=== PATIENT | male | born 1940 | race Caucasian/White ===

== ENCOUNTER → 2018-10-27 | Outpatient (CLI) | payer MEDICARE ==
[2018-10-27 10:08] LABS: CALCIUM 9.6 MG/DL (8.5-10.1); CREATININE SERUM 1.4 MG/DL (0.60-1.30); POTASSIUM 4.9 MMOL/L (3.6-5.0)
[2018-10-27 10:09] LABS: ALBUMIN 4.4 GM/DL (3.2-4.5); BILIRUBIN,TOTAL 0.3 MG/DL (0.1-1.0); HEMATOCRIT 41 % (40-54); HEMOGLOBIN 13.2 G/DL (13.3-17.7); MEAN CORPUSCULAR HEMOGLOBIN 29 PG (25-34); MEAN CORPUSCULAR VOLUME 90 FL (80-99); TOTAL PROTEIN 7.1 GM/DL (6.4-8.2)
[2018-10-27 10:10] LABS: BASOPHILS # (AUTO) 0.1 10^3/uL (0.0-0.1); BASOPHILS % (AUTO) 0 % (0-10); EOSINOPHILS # (AUTO) 0.2 10^3/uL (0.0-0.3); EOSINOPHILS % (AUTO) 1 % (0-10); LYMPHOCYTES # (AUTO) 18.8 X 10^3 (1.0-4.0); LYMPHOCYTES % (AUTO) 75 % (12-44); MEAN CORPUSCULAR HGB CONC 33 G/DL (32-36); MEAN PLATELET VOLUME 9.4 FL (7.4-10.4); MONOCYTES # (AUTO) 0.8 X 10^3 (0.0-1.0); MONOCYTES % (AUTO) 3 % (0-12); NEUTROPHILS # (AUTO) 5.1 X 10^3 (1.8-7.8); NEUTROPHILS % (AUTO) 21 % (42-75); PLATELET COUNT 254 10^3/uL (130-400)
== END ==
LOC: LAB FS 08:45
PROVIDERS: ATTEND Internal Medicine Hematology & Oncology
DX: Z01.89 Encounter for other specified special examinations (principal)
CPT/HCPCS: 36415; 80053; 82232; 82784; 83615; 85025

== ENCOUNTER → 2020-04-28 | Outpatient (CLI) | payer MEDICARE ==
[2020-04-28 11:49] LABS: POTASSIUM 4.9 MMOL/L (3.6-5.0)
[2020-04-28 11:50] LABS: ALBUMIN 4.3 GM/DL (3.2-4.5); BILIRUBIN,TOTAL 0.3 MG/DL (0.1-1.0); CALCIUM 9.4 MG/DL (8.5-10.1); CREATININE SERUM 1.31 MG/DL (0.60-1.30); TOTAL PROTEIN 6.8 GM/DL (6.4-8.2)
== END ==
LOC: LAB FS 10:40
PROVIDERS: ATTEND Internal Medicine Hematology & Oncology
DX: Z00.00 Encounter for general adult medical examination without abnormal findings (principal)
CPT/HCPCS: 36415; 80053; 82232; 82784; 83615

== ENCOUNTER → 2020-10-23 | Outpatient (CLI) | payer MEDICARE ==
[2020-10-23 13:05] LABS: HEMATOCRIT 38 % (40-54); HEMOGLOBIN 12.2 g/dL (13.3-17.7); MEAN CORPUSCULAR HEMOGLOBIN 30 pg (25-34); WHITE BLOOD COUNT 29.3 10^3/uL (4.3-11.0)
[2020-10-23 13:06] LABS: BASOPHILS % (AUTO) 0 % (0-10); EOSINOPHILS % (AUTO) 1 % (0-10); LYMPHOCYTES % (AUTO) 73 % (12-44); MEAN CORPUSCULAR HGB CONC 32 g/dL (32-36); MEAN CORPUSCULAR VOLUME 92 fL (80-99); MEAN PLATELET VOLUME 9.1 fL (9.0-12.2); MONOCYTES % (AUTO) 4 % (0-12); NEUTROPHILS % (AUTO) 22 % (42-75); PLATELET COUNT 228 10^3/uL (130-400)
[2020-10-23 13:07] LABS: BASOPHILS # (AUTO) 0.1 10^3/uL (0.0-0.1); EOSINOPHILS # (AUTO) 0.3 10^3/uL (0.0-0.3); LYMPHOCYTES # (AUTO) 21.4 X 10^3 (1.0-4.0); MONOCYTES # (AUTO) 1.2 X 10^3 (0.0-1.0); NEUTROPHILS # (AUTO) 6.3 X 10^3 (1.8-7.8)
[2020-10-23 13:46] LABS: CREATININE SERUM 1.41 MG/DL (0.60-1.30); POTASSIUM 4.7 MMOL/L (3.6-5.0)
[2020-10-23 13:47] LABS: ALBUMIN 4.4 GM/DL (3.2-4.5); BILIRUBIN,TOTAL 0.4 MG/DL (0.1-1.0); CALCIUM 9.5 MG/DL (8.5-10.1)
[2020-10-23 14:18] LABS: EOSINOPHILS % (MANUAL) 1 %; LYMPHOCYTES % (MANUAL) 66 %; MONOCYTES % (MANUAL) 2 %; NEUTROPHILS % (MANUAL) 31 %
[2020-10-23 14:19] LABS: PLATELET ESTIMATE ADEQUATE; RBC MORPH NORMAL; SMUDGE CELLS MOD
== END ==
LOC: LAB 12:23
PROVIDERS: ATTEND Internal Medicine Hematology & Oncology
DX: C91.10 Chronic lymphocytic leukemia of B-cell type not having achieved remission (principal)
CPT/HCPCS: 36415; 80053; 82232; 82784; 83615; 85007; 85027

== ENCOUNTER → 2021-10-21 | Outpatient (CLI) | payer MEDICARE ==
[2021-10-21 10:40] LABS: BASOPHILS # (AUTO) 0.1 10^3/uL (0.0-0.1); BASOPHILS % (AUTO) 0 % (0-10); EOSINOPHILS # (AUTO) 0.2 10^3/uL (0.0-0.3); EOSINOPHILS % (AUTO) 1 % (0-10); HEMATOCRIT 36 % (40-54); LYMPHOCYTES # (AUTO) 18.8 10^3/uL (1.0-4.0); LYMPHOCYTES % (AUTO) 73 % (12-44); MEAN CORPUSCULAR HEMOGLOBIN 30 pg (25-34); MEAN CORPUSCULAR HGB CONC 33 g/dL (32-36); MEAN CORPUSCULAR VOLUME 89 fL (80-99); MEAN PLATELET VOLUME 9.3 fL (9.0-12.2); MONOCYTES # (AUTO) 0.9 10^3/uL (0.0-1.0); MONOCYTES % (AUTO) 3 % (0-12); NEUTROPHILS # (AUTO) 5.8 10^3/uL (1.8-7.8); NEUTROPHILS % (AUTO) 23 % (42-75); PLATELET COUNT 214 10^3/uL (130-400); WHITE BLOOD COUNT 25.7 10^3/uL (4.3-11.0)
[2021-10-21 11:16] LABS: ALBUMIN 4.3 GM/DL (3.2-4.5); BILIRUBIN,TOTAL 0.3 MG/DL (0.1-1.0); CALCIUM 9.5 MG/DL (8.5-10.1); CREATININE SERUM 1.4 MG/DL (0.60-1.30); POTASSIUM 5.1 MMOL/L (3.6-5.0); TOTAL PROTEIN 6.6 GM/DL (6.4-8.2)
[2021-10-21 11:32] LABS: ATYPICAL LYMPHOCYTES 2 %; BAND NEUTROPHILS 1 %; BASOPHILS % (MANUAL) 0 %; EOSINOPHILS % (MANUAL) 1 %; LYMPHOCYTES % (MANUAL) 49 %; MONOCYTES % (MANUAL) 6 %; NEUTROPHILS % (MANUAL) 41 %
== END ==
LOC: LAB FS 10:18
PROVIDERS: ATTEND Internal Medicine Hematology & Oncology
DX: C91.10 Chronic lymphocytic leukemia of B-cell type not having achieved remission (principal)
CPT/HCPCS: 36415; 80053; 82232; 82784; 83615; 85007; 85027

== ENCOUNTER → 2022-09-30 | Outpatient (CLI) | payer MEDICARE ==
[2022-09-30 15:04] LABS: BASOPHILS # (AUTO) 0.1 10^3/uL (0.0-0.1); BASOPHILS % (AUTO) 0 % (0-10); EOSINOPHILS # (AUTO) 0.2 10^3/uL (0.0-0.3); EOSINOPHILS % (AUTO) 1 % (0-10); HEMATOCRIT 36 % (40-54); HEMOGLOBIN 11.8 g/dL (13.3-17.7); LYMPHOCYTES % (AUTO) 70 % (12-44); MEAN CORPUSCULAR HEMOGLOBIN 30 pg (25-34); MEAN CORPUSCULAR HGB CONC 33 g/dL (32-36); MEAN CORPUSCULAR VOLUME 90 fL (80-99); MEAN PLATELET VOLUME 9.3 fL (9.0-12.2); MONOCYTES # (AUTO) 0.7 10^3/uL (0.0-1.0); MONOCYTES % (AUTO) 3 % (0-12); NEUTROPHILS # (AUTO) 6.9 10^3/uL (1.8-7.8); NEUTROPHILS % (AUTO) 26 % (42-75); PLATELET COUNT 227 10^3/uL (130-400)
[2022-09-30 15:25] LABS: CALCIUM 9.3 MG/DL (8.5-10.1); CREATININE SERUM 1.46 MG/DL (0.60-1.30)
[2022-09-30 15:26] LABS: ALBUMIN 4.1 GM/DL (3.2-4.5); BILIRUBIN,TOTAL 0.2 MG/DL (0.1-1.0); EOSINOPHILS % (MANUAL) 3 %; MONOCYTES % (MANUAL) 4 %; NEUTROPHILS % (MANUAL) 30 %; TOTAL PROTEIN 6.5 GM/DL (6.4-8.2)
[2022-09-30 15:27] LABS: ATYPICAL LYMPHOCYTES 63 %; RBC MORPH NORMAL
== END ==
LOC: LAB FS 14:41
PROVIDERS: ATTEND Internal Medicine Hematology & Oncology
DX: C91.10 Chronic lymphocytic leukemia of B-cell type not having achieved remission (principal)
CPT/HCPCS: 36415; 80053; 82232; 82784; 83615; 85007; 85027

== ENCOUNTER 2022-11-30 05:32 | Outpatient (CLI) | payer MEDICARE ==
[~2022-11-30] VITALS: Ht 175.3 cm; Wt 87.7 kg
[2022-11-30] MEDS ORDERED: ASPI-999 PO (08:44)
[2022-11-30] MEDS ORDERED: TMSL.4C PO (08:44)
[2022-11-30] MEDS ORDERED: GABA300C PO (08:44)
[2022-11-30] MEDS ORDERED: SIMV40TA25 PO (08:44)
[2022-11-30] MEDS ORDERED: FINA5TAB6 PO (08:44)
[2022-11-30] MEDS ORDERED: MULT-1061 PO (08:44)
[2022-11-30] MEDS ORDERED: ACET-2650 PO (08:44)
[2022-11-30] MEDS ORDERED: TRAM50TA3 PO (08:44)
[2022-11-30] MEDS ORDERED: LISI5TAB20 PO (08:44)
== END 2022-11-30 09:14 | disposition home or self-care (01) ==
LOC: PREOP 05:32
PROVIDERS: ATTEND Otolaryngology Otolaryngology/Facial Plastic Surgery
DX: Z01.818 Encounter for other preprocedural examination (principal)

== ENCOUNTER 2022-12-02 06:23 | Day surgery (SDC) | payer MEDICARE ==
[~2022-12-02] VITALS: Ht 175.3 cm; Wt 87.7 kg
[2022-12-02] VITALS (12 sets, daily range): BP systolic 138–156; BP diastolic 67–85
[~2022-12-02 06:23] MED LIST: ACET-2650 PO; ASPI-999 PO; FINA5TAB6 PO; GABA300C PO; LISI5TAB20 PO; MULT-1061 PO; SIMV40TA25 PO; TMSL.4C PO; TRAM50TA3 PO
[2022-12-02] MEDS ORDERED: fentaNYL INJECTION 100 MCG/2 ML VIAL ONE (06:49)
[2022-12-02] MEDS ORDERED: SEVOFLURANE (ULTANE) 15 ML INHAL SOLN ONE ×2 (06:49→08:27)
[2022-12-02] MEDS ORDERED: LIDOCAINE PF 2% 5 ML VIAL ONE (06:49)
[2022-12-02] MEDS ORDERED: proPOfol INJECTION 200 MG/20 ML VIAL IV ONE (06:49)
[2022-12-02] MEDS ORDERED: ONDANSETRON INJECTION 4 MG/2 ML (SDV) ONE (06:49)
[2022-12-02] MEDS ORDERED: MIDAZOLAM INJ 2 MG/2 ML VIAL ONE (06:50)
--- NOTE | 2022-12-02 07:02 | Progress Note-Pre Operative ---
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
--- NOTE | 2022-12-02 07:03 | Progress Note-Post Operative ---
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 Specimen(s) collected/removed right ear lesion to path for frozen AUDREY BAILEY MD Dec 02, 2022 07:03
[2022-12-02] MEDS ORDERED: HYDROcodone/ACETAMINOPHEN 5 MG/325 MG TABLET PO PRN (07:15)
[2022-12-02] MEDS ORDERED: LACTATED RINGERS 1,000 ML 1,000 ML IV PRN (07:15)
[2022-12-02] MEDS ORDERED: ACETAMINOPHEN 325 MG TABLET PO PRN (07:15)
[2022-12-02] MEDS ORDERED: BSS 15 ML ONE (07:36)
[2022-12-02] MEDS ORDERED: LIDOCAINE/EPI 1%-1:200,000 (XYLOCAINE) 30 ML VIAL ONE (07:36)
[2022-12-02] MEDS ORDERED: MUPIROCIN 2% OINTMENT 22 GM TUBE ONE (07:37)
[2022-12-02 07:44] LABS: BASOPHILS # (AUTO) 0.1 10^3/uL (0.0-0.1); BASOPHILS % (AUTO) 1 % (0-10); EOSINOPHILS # (AUTO) 0.2 10^3/uL (0.0-0.3); EOSINOPHILS % (AUTO) 1 % (0-10); HEMATOCRIT 39 % (40-54); HEMOGLOBIN 12.7 g/dL (13.3-17.7); LYMPHOCYTES # (AUTO) 17.5 10^3/uL (1.0-4.0); LYMPHOCYTES % (AUTO) 75 % (12-44); MEAN CORPUSCULAR HEMOGLOBIN 30 pg (25-34); MEAN CORPUSCULAR HGB CONC 33 g/dL (32-36); MEAN CORPUSCULAR VOLUME 90 fL (80-99); MEAN PLATELET VOLUME 9.3 fL (9.0-12.2); MONOCYTES # (AUTO) 0.8 10^3/uL (0.0-1.0); MONOCYTES % (AUTO) 3 % (0-12); NEUTROPHILS # (AUTO) 4.8 10^3/uL (1.8-7.8); NEUTROPHILS % (AUTO) 20 % (42-75); PLATELET COUNT 233 10^3/uL (130-400); WHITE BLOOD COUNT 23.4 10^3/uL (4.3-11.0)
[2022-12-02 07:58] LABS: CALCIUM 9.3 MG/DL (8.5-10.1); CREATININE SERUM 1.31 MG/DL (0.60-1.30); POTASSIUM 4.3 MMOL/L (3.6-5.0)
[2022-12-02 08:02] LABS: BAND NEUTROPHILS 1 %; BASOPHILS % (MANUAL) 1 %; EOSINOPHILS % (MANUAL) 1 %; LYMPHOCYTES % (MANUAL) 58 %; MONOCYTES % (MANUAL) 4 %; NEUTROPHILS % (MANUAL) 19 %
[2022-12-02 08:03] LABS: ATYPICAL LYMPHOCYTES 16 %; RBC MORPH NORMAL
[2022-12-02] MEDS ORDERED: LIDOCAINE/EPI 1%-1:200,000 (XYLOCAINE) 30 ML VIAL INJ ONE (08:16)
[2022-12-02] MEDS ORDERED: PHENYLEPHRINE 100 MCG/ML 10 ML (ANESTHESIA) SYR ONE (08:23)
[2022-12-02] MEDS ORDERED: MUPIROCIN 2% OINTMENT 22 GM TUBE TOP ONE (08:49)
--- NOTE | 2022-12-02 09:02 | Anesthesia-General Post-Op ---
General Patient Condition Mental Status/LOC: Same as Preop Cardiovascular: Satisfactory Nausea/Vomiting: Absent Respiratory: Satisfactory Pain: Controlled Complications: Absent Post Op Complications Complications None Follow Up Care/Instructions Patient Instructions None needed. Anesthesia/Patient Condition Patient Condition Patient is doing well, no complaints, stable vital signs, no apparent adverse anesthesia problems. No complications reported per nursing. GAY GARRETT CRNA Dec 02, 2022 09:01
[2022-12-02] MEDS ORDERED: morphine INJ 10 MG/ML 1ML (SYR OR VIAL) ONE (09:13)
[2022-12-02] MEDS ORDERED: morphine INJ 10 MG/ML 1ML (SYR OR VIAL) IVP ONE (09:15)
[2022-12-02] MEDS ORDERED: MEPERIDINE INJ 50 MG/ML VIAL IVP ONE (09:15)
[2022-12-02] MEDS ORDERED: fentaNYL INJECTION 100 MCG/2 ML VIAL IVP ONE (09:15)
[2022-12-02] MEDS ORDERED: ONDANSETRON INJECTION 4 MG/2 ML (SDV) IVP PRN (09:15)
[2022-12-02] MEDS ORDERED: CEPH500T PO (10:00)
[2022-12-02] MEDS ORDERED: ACHD5005 PO (10:00)
== END 2022-12-02 11:00 ==
LOC: SDC 06:23
PROVIDERS: ATTEND Otolaryngology Otolaryngology/Facial Plastic Surgery
DX: C44.212 Basal cell carcinoma of skin of right ear and external auricular canal (principal); Z28.310 Unvaccinated for COVID-19
CPT/HCPCS: 36415; 80048; 85007; 85027; 87081; 93005